=== PATIENT | male | born 1995 | race Hispanic/Latino ===

== ENCOUNTER 2018-05-08 14:51 | Emergency (ER) | payer BC ==
[2018-05-08 14:59] VITALS: BP 132/72; PULSE 64; RESP 16; TEMP 98.2; O2SAT 100
[2018-05-08] MEDS ORDERED: Tdap Vaccine 0.5 ml Vial (10-64 yrs) IM ONE ×2 (15:07→15:33)
--- NOTE | 2018-05-08 15:24 | ED PDOC ---
Upper Extremity Pain/Injury Time Seen by Provider: 05/08/18 15:00 Chief Complaint (Nursing): Abnormal Skin Integrity Chief Complaint (Provider): Finger Laceration History Per: Patient History/Exam Limitations: no limitations Onset/Duration Of Symptoms: Mins (just prior to arrival) Current Symptoms Are (Timing): Still Present Additional Complaint(s): 22 year old male presents to the ED for evaluation of a right pinky laceration s/p a blade striking the finger through a glove just prior to arrival while helping a friend use a machine. Denies taking any medications since onset and offers no other complaints. Tetanus not up to date. Left hand dominant. PMD: [facility] Past Medical History Reviewed: Historical Data, Nursing Documentation, Vital Signs Vital Signs: Last Vital Signs Temp 98.2 F 05/08/18 14:55 Pulse 64 05/08/18 14:55 Resp 16 05/08/18 14:55 BP 132/72 05/08/18 14:55 Pulse Ox 100 05/08/18 14:55 - Medical History Other PMH: WPW - Surgical History Other surgeries: WPW correction - Family History Family History: States: Unknown Family Hx - Home Medications Home Medications: Ambulatory Orders Medication Instructions Recorded Cephalexin [Keflex] 500 mg PO TID #21 capsule 05/08/18 RX: Bacitracin Ointment 1 applic TOP BID #1 tube 05/08/18 [Bacitracin] RX: Naproxen 500 mg PO BID PRN #20 tab 05/08/18 - Allergies Allergies/Adverse Reactions: Allergies Allergy/AdvReac Type Severity Reaction Status Date / Time No Known Allergies Allergy Verified 05/08/18 14:55 Review of Systems ROS Statement: Except As Marked, All Systems Reviewed And Found Negative Skin: Positive for: Other (pinky finger laceration) Physical Exam - Reviewed Nursing Documentation Reviewed: Yes Vital Signs Reviewed: Yes - Physical Exam Comments: GENERAL APPEARANCE: Patient is awake, alert, oriented x 3, in no acute distress. Resting comfortably. SKIN: Warm, dry; (-) cyanosis. NECK: Supple, FROM CHEST AND RESPIRATORY: (-) rales, (-) rhonchi, (-) wheezes; breath sounds equal bilaterally. Respirations even and nonlabored. HEART AND CARDIOVASCULAR: (-) irregularity RIGHT HAND: Ulnar aspect of distal right 5th digit: superficial abrasions with active bleeding and mild edema to distal phalanx. Ulnar aspect of nail of 5th digit: .5cm linear crack to mid nail with mild surrounding ecchymosis (+) active bleeding. Full ROM of 5th digit. Sensation and capillary refill intact. No erythema or warmth noted to digits. NEURO AND PSYCH: Mental status as above. Gait: steady. Speech: clear. (-) facial asymmetry - ECG O2 Sat by Pulse Oximetry: 100 (RA) Pulse Ox Interpretation: Normal Medical Decision Making Medical Decision Making: Initial Impression: wound check, finger abrasion Time: 1505 Initial Plan: --Tetanus booster --Ultram 50mg PO (Not driving) --Wound repair --XR hand r/o fracture 1540 Wound repair performed with Dermabond by Susan JAMES. NV intact after procedure. Patient tolerated procedure well. Educated on adhesive wound care. 1630 XR: (+)tuft fracture as read by Susan JAMES. Keflex PO ordered. Finger placed in aluminum finger splint. On exam, patient remains AAOx3, in no acute distress. Lungs clear to auscultation, cardiac RRR, repeat neuro exam shows no focal findings. Vitals stable. Lab/Diagnostic results d/w the patient in great detail. Diagnosis of open finger fracture, fingernail injury d/w the patient. Based on history, exam and diagnostic results, plan will be for outpatient follow up with G[facility]ARDO/Sherine/ronan. Patient instructed to follow-up with pmd / referral provided / the clinic in 1- 2 days without fail. Advised to take medication as prescribed. Return to the emergency room at any time for any new or worsening symptoms. Patient states he fully agrees with and understands discharge instructions. States that he agrees with the plan and disposition. Verbalized and repeated discharge instructions and plan. I have given the patient opportunity to ask any additional questions. -- Scribe Attestation: Documented by Sandi Ha, acting as a scribe for Radha Davis PA-C. Provider Scribe Attestation: All medical record entries made by the Scribe were at my direction and personally dictated by me. I have reviewed the chart and agree that the record accurately reflects my personal performance of the history, physical exam, medical decision making, and the department course for this patient. I have also personally directed, reviewed, and agree with the discharge instructions and disposition. Procedures - Laceration/Wound Repair Right 5th digit Wound Length (cm): 0.5 Wound's Depth, Shape: linear Wound Explored: clean Irrigated w/ Saline (ccs): 100 Betadine Prep?: No Wound Repaired With: Skin adhesive Wound Complexity: Simple Progress: Patient tolerated procedure well. Disposition - Clinical Impression Clinical Impression: Fingernail injury, Skin abrasion, Fracture of distal phalanx of finger, Open fracture of finger, distal phalanx - Patient ED Disposition Is Patient to be Admitted: No Counseled Patient/Family Regarding: Studies Performed, Diagnosis, Need For Followup, Rx Given - Disposition Referrals: [facility] [Provider Group] Fransisco Jones MD [Staff Provider] - Rafael Oropeza MD [Medical Doctor] - Disposition: Routine/Home Disposition Time: 16:30 Condition: STABLE Additional Instructions: KEEP WOUND CLEAN AND DRY. ONCE ADHESIVE FALLS OFF, APPLY PRESCRIBED ANTIBIOTIC OINTMENT TWICE DAILY UNTIL HEALED. The emergency medical care you received today was directed at your acute symptoms. If you were prescribed any medication, please fill it and take as directed. It may take several days for your symptoms to resolve. Return to the Emergency Department if your symptoms worsen, do not improve, or if you have any other problems. Please contact your doctor in 2 days for re-evaluation and follow up / or call one of the physicians/clinics you have been referred to that are listed on the Patient Visit Information form that is included in your discharge packet. Bring any paperwork you were given at discharge with you along with any medications you are taking to your follow up visit. Our treatment cannot replace ongoing medical care by a primary care provider (PCP) outside of the emergency department. Prescriptions: RX: Bacitracin Ointment [Bacitracin] 1 applic TOP BID #1 tube Cephalexin [Keflex] 500 mg PO TID #21 capsule RX: Naproxen 500 mg PO BID PRN #20 tab PRN Reason: Pain, Moderate (4-7) Instructions: Skin Abrasions, Laceration Repair With Glue (DC), Wound Care, Finger Fracture (DC), Common Finger Injuries (DC) Forms: [employer] (Tanzanian) Print Language: MONTSERRATIAN - POA Present On Arrival: Falls Or Trauma
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
== END 2018-05-08 16:55 | disposition home or self-care (01) ==
LOC: H.ER 14:51
DX: S61.216A Laceration without foreign body of right little finger without damage to nail, initial encounter (principal); W26.8XXA Contact with other sharp object(s), not elsewhere classified, initial encounter; Y99.0 Civilian activity done for income or pay